=== PATIENT | female | born 1980 | race Caucasian/White ===

== ENCOUNTER 2016-12-03 18:50 | Emergency (ER) | payer MEDICAID, OTHER ==
[~2016-12-03] VITALS: Ht 165.1 cm; Wt 71.5 kg
[2016-12-03 18:55] VITALS: Ht 165.1 cm; Wt 71.5 kg
[2016-12-03] MEDS ORDERED: DIPHTH/TET/ACEL PERTUSS (ADULT) 0.5 ML VIAL IM* ONE (19:30)
[2016-12-03] MEDS ORDERED: LIDOCAINE 2% (MDV) 20 ML INJ INJ ONE (19:30)
--- NOTE | 2016-12-03 21:53 | RADRPT ---
PROCEDURE: XR Hand. CLINICAL INDICATION: Laceration, pain. TECHNIQUE: Three views of the left hand. COMPARISON: None available. FINDINGS: No fracture or dislocation is identified. The joint spaces are preserved. There is no significant so ft tissue swelling. There is no radiopaque foreign body. IMPRESSION: 1. No fracture or dislocation of the left hand. 2. No radiopaque foreign body. RPTAT: HTAR .Lenin Camargo MD, MD Date Time Electronically viewed and signed by .Lenin Camargo MD, on 12/03/2016 21:53 .R/
[2016-12-03] MEDS ORDERED: IBUP-1542 PO (22:00)
--- NOTE | 2016-12-03 22:04 | ERD ---
ER Documentation Chief Complaint Date/Time DATE: 12/03/16 TIME: 22:02 Chief Complaint Cut L palm removing avocado seed HPI This is a 36-year-old female presents to the ER with a laceration to her left palm after she was removing and avocado seed. Patient denies any numbness or tingling to her hand she admits to some mild pain to the area where she has a laceration. Bleeding was controlled before arriving to the ER. Patient does not have a current tetanus shot. ROS 12 point review of systems was done, all negative except per HPI. Medications Home Meds Active Scripts Ibuprofen* (Motrin*) 600 Mg Tab, 600 MG PO Q6, #30 TAB Prov:MILAGROS VALLECILLO Yehuda 12/03/16 PMhx/Soc Medical and Surgical Hx: pt denies Medical Hx, pt denies Surgical Hx History of Surgery: No Anesthesia Reaction: No Hx Neurological Disorder: No Hx Respiratory Disorders: No Hx Cardiac Disorders: No Hx Psychiatric Problems: No Hx Miscellaneous Medical Probl: No Hx Alcohol Use: Yes (social) Hx Substance Use: Yes (occasional marijuana) Hx Tobacco Use: No Smoking Status: Current some day smoker Physical Exam Vitals Vital Signs Date Time Temp Pulse Resp B/P Pulse Ox O2 Delivery O2 Flow Rate FiO2 12/03/16 18:55 98.3 67 16 121/68 96 Physical Exam GENERAL: The patient is well developed and appropriate for usual state of health , in no apparent distress. HEENT: Atraumatic. CHEST: Clear to auscultation bilaterally. There are no rales, wheezes or rhonchi. HEART: Regular rate and rhythm. No murmurs, clicks, rubs or gallops. EXTREMITIES: Left hand: There is a small 3 cm linear laceration to the left volar palm. Patient has full range of motion of her hand and range of motion is nonpainful. Tendons and ligaments are intact. Radial ulnar median nerves are intact. SKIN: The skin is warm and dry. Results 24 hrs Current Medications Medications (Trade) Dose Ordered Sig/Larry Route PRN Reason Start Time Stop Time Status Last Admin Dose Admin Lidocaine (Xylocaine 2% (Mdv) 20 ml) 20 ml ONCE ONCE INJ 12/03/16 19:30 12/03/16 19:31 DC 12/03/16 19:33 Diphtheria/ Tetanus/Acell Pertussis (Adacel) 0.5 ml ONCE ONCE IM* 12/03/16 19:30 12/03/16 19:31 DC 12/03/16 19:33 Procedures/MDM Dr. Yo was at bedside and examined patient with me. He agrees with my medical decision making. Laceration Repair by me: Anesthesia: 1% lidocaine locally Location: 3cm Tendon/Joint/Nerves: No injury Foreign body: None detected after copious irrigation and exploration Technique: 3 Simple Interrupted Sutures Complexity: No subcutaneous sutures/mucosal repair/ edge excision Post Closure Length: 3 cm Patient's bleeding was easily controlled in the department and there is no indication of anemia. No evidence of compartment syndrome, neurologic injury, vascular injury, open joint, tendon laceration, or foreign body. Patient is appropriate for outpatient follow up. 48 hour wound check. Scar minimization instructions given. There is no evidence of fractures or dislocations on x-ray. Patient will be sent home with ibuprofen. She needs to also follow-up with primary care doctor within 1-2 days return to ER sooner if symptoms open. My medical decision making shared with the patient she understands and agrees with plan. Departure Diagnosis: Primary Impression: Laceration Condition: Stable Patient Instructions: Laceration, Hand Additional Instructions: Return to this facility in 2 DAYS for wound check. Return to ER sooner if you develop fever/chills or severe pain/ increased redness or discharge from laceration. MILAGROS VALLECILLO Dec 03, 2016 22:04
== END 2016-12-03 22:09 | disposition home or self-care (01) ==
LOC: FTE 18:50
DX: S61.412A Laceration without foreign body of left hand, initial encounter (principal); F17.210 Nicotine dependence, cigarettes, uncomplicated; W26.9XXA Contact with unspecified sharp object(s), initial encounter; Y92.9 Unspecified place or not applicable; Z23 Encounter for immunization
CPT/HCPCS: 12002; 73130; 90471; 90715; Z7502; Z7610

== ENCOUNTER 2016-12-06 18:31 | Emergency (ER) | payer MEDICAID ==
[~2016-12-06] VITALS: Ht 167.6 cm; Wt 72.0 kg
[~2016-12-06 18:31] MED LIST: IBUP-1542 PO
[2016-12-06 18:36] VITALS: Ht 167.6 cm; Wt 72.0 kg
--- NOTE | 2016-12-06 18:47 | ERD ---
ER Documentation Chief Complaint Date/Time DATE: 12/06/16 TIME: 18:44 Chief Complaint wound check suture done 2 days ago HPI 36-year-old female presents here in emergency department for a wound check, had a laceration wound repaired 2 days ago, patient denies any pain, patient denies any opening of the wound, patient denies any discharge coming from the wound. Patient denies any new injury. Patient was taking ibuprofen for pain which helped. At this time, patient does not have any pain. Patient denies any numbness or tingling. ROS All systems reviewed and are negative except as per history of present illness. Medications Home Meds Active Scripts Ibuprofen* (Motrin*) 600 Mg Tab, 600 MG PO Q6, #30 TAB Prov:MILAGROS VALLECILLO Yehuda 12/03/16 Allergies Allergies: Coded Allergies: No Known Allergy (Unverified , 12/06/16) PMhx/Soc Medical and Surgical Hx: pt denies Medical Hx, pt denies Surgical Hx History of Surgery: No Anesthesia Reaction: No Hx Neurological Disorder: No Hx Respiratory Disorders: No Hx Cardiac Disorders: No Hx Psychiatric Problems: No Hx Miscellaneous Medical Probl: No Hx Alcohol Use: Yes (social) Hx Substance Use: Yes (occasional marijuana) Hx Tobacco Use: No FmHx Family History: No coronary disease, No diabetes, No other Physical Exam Vitals Vital Signs Date Time Temp Pulse Resp B/P Pulse Ox O2 Delivery O2 Flow Rate FiO2 12/06/16 18:36 97.7 63 20 119/76 95 Physical Exam GENERAL: The patient is well developed and appropriate for usual state of health, in no apparent distress. CHEST: Clear to auscultation bilaterally. There are no rales, wheezes or rhonchi. HEART: Regular rate and rhythm. No murmurs, clicks, rubs or gallops. No S3 or S4. ABDOMEN: Soft, nontender and nondistended. Good bowel sounds. No rebound or guarding. No gross peritonitis. No gross organomegaly or masses. No Hamilton sign or McBurney point tenderness. BACK: No midline or flank tenderness. EXTREMITIES: Equal pulses bilaterally. There is no peripheral clubbing, cyanosis or edema. No focal swelling or erythema. Full range of motion. Grossly neurovascularly intact. NEURO: Alert and oriented. Cranial nerves 2-12 intact. Motor strength in all 4 extremities with 5/5 strength. Sensation grossly intact. Normal speech and gait. SKIN: Noted laceration wound in the palmar aspect of the right hand. Healing well, sutures are in place. There is no apparent rash or petechia. The skin is warm and dry. HEMATOLOGIC AND LYMPHATIC: There is no evidence of excessive bruising or lymphedema. No gross cervical, axillary, or inguinal lymphadenopathy. Procedures/MDM Medical decision making: Patient's symptoms is likely consistent with a healing laceration wound. No symptoms of any infection. No symptoms of gaping of the wound. Antibiotics not necessary at this time. No symptoms of neurovascular compromise. No symptoms of any compartment syndrome. Patient was advised to have the sutures removed in 7-10 days. Patient was advised to return to emergency department for any symptoms of infection. Patient was advised to return sooner for any worsening symptoms. Disposition: Home. Stable for Departure Diagnosis: Primary Impression: Hand laceration Encounter type: initial encounter Foreign body presence: without foreign body Laterality: unspecified laterality Qualified Code: S61.419A - Laceration of hand without foreign body, unspecified laterality, initial encounter Additional Impression: Encounter for wound re-check Patient Instructions: Wound Check, Lac F/U (No Infection) Referrals: [facility] YOU HAVE RECEIVED A MEDICAL SCREENING EXAM AND THE RESULTS INDICATE THAT YOU DO NOT HAVE A CONDITION THAT REQUIRES URGENT TREATMENT IN THE EMERGENCY DEPARTMENT. FURTHER EVALUATION AND TREATMENT OF YOUR CONDITION CAN WAIT UNTIL YOU ARE SEEN IN YOUR DOCTORS OFFICE WITHIN THE NEXT 1-2 DAYS. IT IS YOUR RESPONSIBILITY TO MAKE AN APPOINTMENT FOR FOLOW-UP CARE. IF YOU HAVE A PRIMARY DOCTOR --you should call your primary doctor and schedule an appointment IF YOU DO NOT HAVE A PRIMARY DOCTOR YOU CAN CALL OUR PHYSICIAN REFERRAL HOTLINE AT IF YOU CAN NOT AFFORD TO SEE A PHYSICIAN YOU CAN CHOSE FROM THE FOLLOWING FORMERLY [facility], [facility] CLINICS [facility] [address] [facility]. [facility] [address] [facility]. [facility] [address] [facility] [address] [facility] [address] [facility]. [facility] [address] [facility]. [facility] YOU HAVE RECEIVED A MEDICAL SCREENING EXAM AND THE RESULTS INDICATE THAT YOU DO NOT HAVE A CONDITION THAT REQUIRES URGENT TREATMENT IN THE EMERGENCY DEPARTMENT. FURTHER EVALUATION AND TREATMENT OF YOUR CONDITION CAN WAIT UNTIL YOU ARE SEEN IN YOUR DOCTORS OFFICE WITHIN THE NEXT 1-2 DAYS. IT IS YOUR RESPONSIBILITY TO MAKE AN APPOINTMENT FOR FOLOW-UP CARE. IF YOU HAVE A PRIMARY DOCTOR --you should call your primary doctor and schedule and appointment IF YOU DO NOT HAVE A PRIMARY DOCTOR YOU CAN CALL OUR PHYSICIAN REFERRAL HOTLINE AT . IF YOU CAN NOT AFFORD TO SEE A PHYSICIAN YOU CAN CHOSE FROM THE FOLLOWING [facility] INSTITUTIONS: [facility] [address] [place] [address] [facility] [address] [place] [address] [facility] + [facility] [address] [place] [address] Additional Instructions: return for sutures to be removed in 7-10 days RAMONA QUINTEROS NP Dec 06, 2016 18:47
== END 2016-12-06 18:43 | disposition home or self-care (01) ==
LOC: E/R 18:31
DX: S61.419D Laceration without foreign body of unspecified hand, subsequent encounter (principal); X58.XXXD Exposure to other specified factors, subsequent encounter
CPT/HCPCS: 99281